=== PATIENT | female | born 1980 | race Caucasian/White ===

== ENCOUNTER → 2018-08-04 | Outpatient (CLI) | payer OTHER ==
[~2018-08-04] MED LIST: ALLO100T30 PO; ATOR40TA PO; ATORVASTATIN PO; COLC0.6T37 PO; LEVO150T5 PO; LEVOTHYROXINE PO; SERT25TA3 PO; SERTRALINE PO
[2018-08-04 15:01] LABS: ANION GAP 7 mmol/L (5-15); CALCIUM 8.7 mg/dL (8.5-10.1); CHLORIDE 105 mmol/L (98-107)
[2018-08-04 15:03] LABS: BASOPHILS # (AUTO) 0.04 x10^3/uL (0-0.1); BASOPHILS % (AUTO) 1 % (0-1); EOSINOPHILS # (AUTO) 0.28 x10^3/uL (0-0.4); EOSINOPHILS % (AUTO) 3 % (1-7); LYMPHOCYTES # (AUTO) 2.08 x10^3/uL (1-3.4); LYMPHOCYTES % (AUTO) 25 % (22-44); MD NO; MEAN CORPUSCULAR HEMOGLOBIN 31.2 pg (27.0-34.8); MEAN CORPUSCULAR HGB CONC 33.8 g/dL (32.4-35.8); MEAN CORPUSCULAR VOLUME 92.1 fL (80-100); MEAN PLATELET VOLUME 7.8 fL (7.4-10.4); MONOCYTES # (AUTO) 0.45 x10^3/uL (0.2-0.8); MONOCYTES % (AUTO) 5 % (2-9); NEUTROPHILS # (AUTO) 5.63 x10^3/uL (1.8-6.8); NEUTROPHILS % (AUTO) 66 % (42-75); PLATELET COUNT 330 x10^3/uL (130-400); RED BLOOD COUNT 4.21 x10^6/uL (3.82-5.3); RED CELL DISTRIBUTION WIDTH 14.7 % (9.6-15.2)
[2018-08-04 15:15] LABS: % IRON SATURATION 15 % (20-55); ALANINE AMINOTRANSFERASE 27 U/L (12-78); ALKALINE PHOSPHATASE 65 U/L (45-117); BILIRUBIN,TOTAL 0.6 mg/dL (0.2-1.0); CREATININE 1.26 mg/dL (0.55-1.02); FOLATE LEVEL 12.6 ng/mL (3.1-17.5); IRON LEVEL 54 mcg/dL (50-170); PREALBUMIN 28.2 mg/dL (20.0-40.0); TOTAL IRON BINDING CAPACITY 349 mcg/dL (250-450); TOTAL PROTEIN 7.7 g/dL (6.4-8.2); TRANSFERRIN 266 mg/dL (200-360)
== END | disposition home or self-care (01) ==
LOC: STAR 14:00
PROVIDERS: ATTEND Surgery
DX: Z01.818 Encounter for other preprocedural examination (principal); J84.10 Pulmonary fibrosis, unspecified
CPT/HCPCS: 36415; 71046; 80053; 82306; 82728; 82746; 83540; 83550; 83970; 84134; 84425; 84466; 85025; 93005

== ENCOUNTER 2018-08-12 06:09 | Inpatient (IN) | payer OTHER ==
[~2018-08-12] VITALS: Ht 160 cm; Wt 116.1 kg
[~2018-08-12 06:09] MED LIST changes: -ATOR40TA PO; -COLC0.6T37 PO; -LEVO150T5 PO; -SERT25TA3 PO
[2018-08-12] MEDS ORDERED: LACTATED RINGERS 1,000 ML IV SCH (06:37)
[2018-08-12] MEDS ORDERED: COLC0.6T37 PO (06:40)
[2018-08-12] MEDS ORDERED: LEVO150T5 PO (06:40)
[2018-08-12] MEDS ORDERED: SERT25TA3 PO (06:40)
[2018-08-12] MEDS ORDERED: ATOR40TA PO (06:40)
[2018-08-12] MEDS ORDERED: METHYLENE BLUE 10 MG/ML 10ML ONE (06:50)
[2018-08-12] MEDS ORDERED: BUPIVACAINE/PF-EPI 0.5% 1:200K ONE (06:50)
[2018-08-12] MEDS ORDERED: LIDOCAINE-MPF 1%, 2ML INFIL ONE (07:00)
[2018-08-12] MEDS ORDERED: PROPOFOL 10 MG/ML, 20ML ONE ×2 (07:13)
[2018-08-12] MEDS ORDERED: SUCCINYLCHOLINE 20 MG/ML, 10ML ONE (07:13)
[2018-08-12] MEDS ORDERED: DEXAMETHASONE 4 MG/ML, 1ML ONE ×2 (07:13)
[2018-08-12] MEDS ORDERED: MIDAZOLAM 1 MG/ML, 2ML ONE (07:13)
[2018-08-12] MEDS ORDERED: ONDANSETRON 2MG/ML, 2ML ONE (07:13)
[2018-08-12] MEDS ORDERED: FENTANYL PF 250 MCG/5ML ONE (07:13)
[2018-08-12] MEDS ORDERED: ROCURONIUM 10MG/ML,5ML ONE (07:13)
[2018-08-12] MEDS ORDERED: CEFOTETAN PMX 2GM/50ML 50 ML ONE (07:18)
[2018-08-12] MEDS ORDERED: EPHEDRINE 50 MG/ML, 1ML ONE (07:23)
[2018-08-12 07:34] LABS: HCG UR SG 1.023 (1.003-1.030)
[2018-08-12 07:50] LABS: CHOL/HDL RATIO 4.1; LDL/HDL RATIO 1.9 (0.5-3.0)
[2018-08-12] MEDS ORDERED: ONDANSETRON 2MG/ML, 2ML IV PRN ×2 (09:00→13:30)
[2018-08-12] MEDS ORDERED: FENTANYL PF 100 MCG/2ML IV PRN (09:00)
[2018-08-12] MEDS ORDERED: PROMETHAZINE 25 MG/ML, 1ML IV PRN (09:00)
[2018-08-12] MEDS ORDERED: GLYCOPYRROLATE 0.2MG/1ML, 5ML ONE (10:20)
[2018-08-12] MEDS ORDERED: HYDROmorphone 2 MG/ML, 1ML ONE (11:11)
[2018-08-12] MEDS: HYDROmorphone 1 MG/ML, 1ML IV PRN ×5 (11:13→12:00)
[2018-08-12] MEDS ORDERED: ACETAMINOPHEN 1,000 MG/100 ML IV IVPB ONE (11:34)
[2018-08-12] MEDS ORDERED: PROMETHAZINE 25 MG SUPP PR PRN (13:30)
[2018-08-12] MEDS ORDERED: DIPHENHYDRAMINE 25 MG CAPSULE PO PRN (13:30)
[2018-08-12 14:00] VITALS: BP 120/85
[2018-08-12] MEDS: ENOXAPARIN 40 MG/0.4 ML SQ SCH (14:14)
[2018-08-12] MEDS: POTASSIUM CHLORIDE 20 MEQ in LACTATED RINGERS 1,000 ML IV SCH (14:14)
[2018-08-12] MEDS: ACETAMINOPHEN 100 ML IV SCH ×2 (15:45→22:23)
[2018-08-12 20:29] VITALS: BP 147/92
[2018-08-13] MEDS: POTASSIUM CHLORIDE 20 MEQ in LACTATED RINGERS 1,000 ML IV SCH ×3 (00:33→16:05)
[2018-08-13 01:14] VITALS: BP 138/79
[2018-08-13 04:48] VITALS: BP_SYST 121
[2018-08-13] MEDS ORDERED: LEVOTHYROXINE 150 MCG TABLET PO SCH (06:00)
[2018-08-13 06:13] LABS: BASOPHILS # (AUTO) 0.02 x10^3/uL (0-0.1); BASOPHILS % (AUTO) 0 % (0-1); EOSINOPHILS % (AUTO) 0 % (1-7); LYMPHOCYTES # (AUTO) 1.01 x10^3/uL (1-3.4); LYMPHOCYTES % (AUTO) 10 % (22-44); MD NO; MEAN CORPUSCULAR HEMOGLOBIN 30.4 pg (27.0-34.8); MEAN CORPUSCULAR HGB CONC 33.1 g/dL (32.4-35.8); MEAN CORPUSCULAR VOLUME 91.9 fL (80-100); MEAN PLATELET VOLUME 8.1 fL (7.4-10.4); MONOCYTES # (AUTO) 0.45 x10^3/uL (0.2-0.8); MONOCYTES % (AUTO) 4 % (2-9); NEUTROPHILS # (AUTO) 8.69 x10^3/uL (1.8-6.8); NEUTROPHILS % (AUTO) 85 % (42-75); PLATELET COUNT 283 x10^3/uL (130-400); RED BLOOD COUNT 3.96 x10^6/uL (3.82-5.3); RED CELL DISTRIBUTION WIDTH 14.5 % (9.6-15.2)
[2018-08-13 07:26] VITALS: BP 145/82
[2018-08-13] MEDS: HYDROcodone/APAP 7.5-325MG/15ML UDC PO PRN ×2 (08:08→15:25)
[2018-08-13] MEDS ORDERED: SERTRALINE 50MG TABLET PO SCH (09:00)
[2018-08-13] MEDS: ENOXAPARIN 40 MG/0.4 ML SQ SCH (13:22)
[2018-08-13 14:30] VITALS: BP 130/84
[2018-08-13] MEDS ORDERED: HYDR473S47 PO (16:34)
== END 2018-08-13 18:17 | disposition home or self-care (01) | DRG 327 ==
LOC: ORIP 06:09 → 4NOR 12:29
PROVIDERS: ADMIT Surgery; ATTEND Surgery
PROC: 0DB60Z3 Excision of Stomach, Open Approach, Vertical (ICD-10-PCS; 2018-08-12)
PROC: 0DP64CZ Removal of Extraluminal Device from Stomach, Percutaneous Endoscopic Approach (ICD-10-PCS; principal; 2018-08-12 07:30)
DX: K95.09 Other complications of gastric band procedure (principal); Z68.42 Body mass index [BMI] 45.0-49.9, adult; E66.01 Morbid (severe) obesity due to excess calories; F32.9 Major depressive disorder, single episode, unspecified; K21.9 Gastro-esophageal reflux disease without esophagitis; Y83.1 Surgical operation with implant of artificial internal device as the cause of abnormal reaction of the patient, or of later complication, without mention of misadventure at the time of the procedure
CPT/HCPCS: 36415; J3490; 80061; 81025; 82565; 85025; 88307; G0378; J0131; J1100; J1170; J1650; J2250; J2270; J2405; J2704; J3010; J3480; C1760; J0330; J7120; Q9968; S0074

== ENCOUNTER 2019-11-08 15:03 | Emergency (ER) | payer OTHER ==
[~2019-11-08] VITALS: Ht 160 cm; Wt 93.6 kg
[~2019-11-08 15:03] MED LIST changes: +ATOR40TA PO; +COLC0.6T37 PO; +HYDR473S47 PO; +LEVO150T5 PO; +SERT25TA3 PO
[2019-11-08 15:47] LABS: BASOPHILS % (AUTO) 2 % (0-1); EOSINOPHILS # (AUTO) 0.26 x10^3/uL (0-0.4); EOSINOPHILS % (AUTO) 4 % (1-7); LYMPHOCYTES # (AUTO) 2.11 x10^3/uL (1-3.4); LYMPHOCYTES % (AUTO) 29 % (22-44); MD NO; MEAN CORPUSCULAR HEMOGLOBIN 28.8 pg (27.0-34.8); MEAN CORPUSCULAR HGB CONC 33.5 g/dL (32.4-35.8); MEAN CORPUSCULAR VOLUME 86.1 fL (80-100); MEAN PLATELET VOLUME 7.9 fL (7.4-10.4); MONOCYTES # (AUTO) 0.41 x10^3/uL (0.2-0.8); MONOCYTES % (AUTO) 6 % (2-9); NEUTROPHILS # (AUTO) 4.35 x10^3/uL (1.8-6.8); NEUTROPHILS % (AUTO) 60 % (42-75); PLATELET COUNT 361 x10^3/uL (130-400); RED BLOOD COUNT 4.63 x10^6/uL (3.82-5.3); RED CELL DISTRIBUTION WIDTH 13.6 % (9.6-15.2)
[2019-11-08 15:56] LABS: ANION GAP 8 mmol/L (5-15); CALCIUM 8.6 mg/dL (8.5-10.1); CHLORIDE 107 mmol/L (98-107); CREATININE 1.07 mg/dL (0.55-1.02)
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
--- NOTE | 2019-11-08 17:00 | NUR ---
report given to Rehana.
--- NOTE | 2019-11-08 17:03 | NUR ---
PT REPORT FROM ASHLEY DAVIES. PT CARE TO BE ASSUMED.
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
--- NOTE | 2019-11-08 18:25 | NUR ---
TO U/S PER ERNIE
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
[2019-11-08 19:56] VITALS: BP 111/69
== END 2019-11-08 20:00 | disposition home or self-care (01) ==
LOC: ED 19:54
DX: N92.1 Excessive and frequent menstruation with irregular cycle (principal); E03.9 Hypothyroidism, unspecified
CPT/HCPCS: 36415; 76830; 80048; 82040; 84443; 84703; 85025; 99284

== ENCOUNTER 2019-12-21 14:32 | Outpatient (CLI) | payer OTHER ==
[2019-12-21] MEDS ORDERED: ASCO1500 PO (14:48)
[2019-12-21] MEDS ORDERED: magnesium PO (14:48)
[2019-12-21] MEDS ORDERED: MULT-672 PO (14:48)
== END 2019-12-21 23:59 | disposition home or self-care (01) ==
LOC: STAR 14:32
PROVIDERS: ATTEND Obstetrics & Gynecology Female Pelvic Medicine and Reconstructive Surgery
DX: Z02.9 Encounter for administrative examinations, unspecified (principal)